=== PATIENT | female | born 1965 | race American Indian/Alaskan Native ===

== ENCOUNTER 2019-10-20 17:02 | Emergency (ER) | payer OTHER ==
--- NOTE | 2019-10-20 17:12 | Emergency Department Report ---
Blank Doc - Documentation Documentation: 54-year-old female that presents with body aches, tachycardia, sore throat, and cough. This initial assessment/diagnostic orders/clinical plan/treatment(s) is/are subject to change based on patient's health status, clinical progression and re- assessment by fellow clinical providers in the ED. Further treatment and workup at subsequent clinical providers discretion. Patient/guardians urged not to elope from the ED as their condition may be serious if not clinically assessed and managed. Initial orders include: 1- Patient sent to [facility] for further evaluation and treatment 2- CXR
--- NOTE | 2019-10-20 18:03 | XRay Report ---
CHEST 2 VIEWS INDICATION / CLINICAL INFORMATION: cough. COMPARISON: None available. FINDINGS: SUPPORT DEVICES: None. HEART / MEDIASTINUM: Enlarged with normal pulmonary vascularity LUNGS / PLEURA: No significant pulmonary or pleural abnormality. No pneumothorax. ADDITIONAL FINDINGS: No significant additional findings. IMPRESSION: 1. Borderline cardiomegaly without CHF Signer Name: Bobby Poe MD Signed: 10/20/2019 5:59 PM Workstation Name: [id number]
--- NOTE | 2019-10-20 19:31 | Emergency Department Report ---
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 She said worsening over the last 3 days with nasal congestion and runny nose. Patient says she thinks is allergies but she works at [employer] and she wants to make sure that it is not more than allergy. Denies any shortness of breath, chest pain, nausea or vomiting. Denies any fever or chills. Patient blood pressure is also elevated and she has a history of hypertension which is managed by her primary care at [facility]. She says she takes amlodipine and HCTZ which she took her last dose was this morning. Denies any headache or dizziness. She does complain of right eye redness and pain on and off. Reports some drainage but no contact with individuals with similar symptoms. Denies any abdominal pain. Pain is 9 out of 10 achy. No medication taken. Intermittent. No numbness or tingling to extremities. Patient is a daily smoker. ED Review of Systems ROS: Stated complaint: RT EYE POSS PINK EYE/SORE THROAT Other details as noted in HPI Constitutional: denies: chills, fever Eyes: eye pain, eye discharge ENT: throat pain, congestion. denies: ear pain, dental pain, epistaxis Respiratory: denies: cough, orthopnea, shortness of breath, SOB with exertion, SOB at rest, stridor, wheezing Cardiovascular: denies: chest pain, palpitations, dyspnea on exertion, edema, syncope Gastrointestinal: denies: abdominal pain, nausea, vomiting, diarrhea, hematemesis, hematochezia Genitourinary: denies: dysuria, frequency, hematuria Musculoskeletal: myalgia. denies: back pain, joint swelling, arthralgia Skin: denies: rash Neurological: denies: headache, numbness, paresthesias, abnormal gait, vertigo ED Past Medical Hx - Past Medical History Previous Medical History?: Yes Hx Hypertension: Yes Hx Diabetes: Yes - Surgical History Past Surgical History?: No - Family History Family history: hypertension - Social History Smoking Status: Never Smoker Substance Use Type: Alcohol - Medications Home Medications: Home Medications Medication Instructions Recorded Confirmed Last Taken Type Acetaminophen [Acetaminophen ER] 650 mg PO Q8H PRN #15 tablet.er 10/20/19 Unknown Rx Azithromycin [Zithromax Z-PASTOR] 250 mg PO DAILY 5 Days #1 pkg 10/20/19 Unknown Rx Cetirizine HCl [ZyrTEC] 10 mg PO QAM 10 Days #10 capsule 10/20/19 Unknown Rx Fluticasone [Flonase] 1 spray NS QDAY 10 Days #1 bottle 10/20/19 Unknown Rx Gentamicin 0.3% Ophth Soln 2 drops OP Q8H 7 Days #1 bottle 10/20/19 Unknown Rx amLODIPine 10 mg PO DAILY 30 Days #30 tab 10/20/19 Unknown Rx hydroCHLOROthiazide [HCTZ] 25 mg PO QDAY 30 Days #30 tablet 10/20/19 Unknown Rx Minor Respiratory Exam - Exam General: Vital signs noted. No distress. Alert and acting appropriately. This is a 54-year-old female well-nourished well-developed in no acute distress. She is nontoxic in appearance. HEENT: Yes Moist Mucous Membranes, Yes Rhinorrhea (Nasal turbinates erythema and congested), Yes Conjuctival Injection (Right conjunctivitis, with right conjunctival injection, erythematous sclera, bilateral pupils equal and reactive to light. Visual acuity 20/30 on the round. Funduscopic exam is normal.), No Pharyngeal Erythema, No Pharyngeal Exudates, No Frontal Tenderness, No Maxillary Tenderness Ear: Neither TM Bulge (Bilateral middle ear effusion), Neither TM Erythema, Neither EAC Pain, Neither EAC Discharge Neck: Yes Supple (Nontender to palpate.), No Adenopathy Lungs: Yes Good Air Exchange, No Wheezes, No Ronchi, No Stridor, No Cough, No Labored Respirations, No Retractions, No Use of Accessory Muscles, No Other Abnormal Lung Sounds Abdomen: Yes Normal Bowel Sounds (In all quadrants), No Tenderness, No Peritoneal Signs Skin: No Rash, No Edema Neurologic: Alert and oriented, no deficits. Patient is alert and oriented x3. GCS of 15. No facial drooping. Speech is normal. Normal reflexes and normal gait. No motor or sensory deficit. Negative Romberg and negative pronator drift Musculoskeletal: Unremarkable. ED Course Vital Signs 10/20/19 17:10 Temperature 98.3 F Pulse Rate 102 H Respiratory 20 Rate Blood Pressure 185/128 O2 Sat by Pulse 98 Oximetry - Reevaluation(s) Reevaluation #1: 10/20/19 20:04 Patient with sore throat and body ache with elevated blood pressure and history of hypertension and she takes Norvasc and hydrochlorothiazide and she says she took dose this morning and she is also out of the pills so she will need a refill. Patient denies any headache. She did report right eye pain in triage but she reports none now it is on and off. She does not have any chest pain or shortness of breath. Chest x-ray negative findings. Will give blood pressure medication in ED and reassess Reevaluation #2: 10/20/19 21:35 Patient blood pressure is better and her pain is better status post Tylenol and hydralazine. She is stable and in no acute distress. ED Medical Decision Making - Radiology Data Radiology results: report reviewed Chest x-ray two-view dictated by radiologist and report reviewed by myself. Please see details below FINDINGS: SUPPORT DEVICES: None. HEART / MEDIASTINUM: Enlarged with normal pulmonary vascularity LUNGS / PLEURA: No significant pulmonary or pleural abnormality. No pneumothorax. ADDITIONAL FINDINGS: No significant additional findings. IMPRESSION: 1. 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 Patient reported that over the last 5 days she has been having sore throat and body aches and right eye redness and pain on and off. Physical findings for right conjunctivitis and her visual acuity 20/30 all around. Neurological exam normal. Patient with findings for sinusitis. Her blood pressure is elevated in emergency room and she is on medication which she said she needs refill for amlodipine and HCTZ. She receive hydralazine 20 mg IM in emergency room and blood pressure taken 1 hour later and improved. She also received Tylenol in emergency room and she is not experiencing any pain at present. Patient given information on chest x-ray which shows no acute findings. Educated on diagnosis and treatment plan and to follow-up with her primary care physician tomorrow and she voiced understanding. Patient to return to work on Thursday and information given onCOVID- 19 for education. Discharged home with family in stable condition with prescription for Zyrtec, Flonase and Zithromax. Refill for hydrochlorothiazide and amlodipine for blood pressure. She is aware that she needs to take her blood pressure daily and record and take to primary care visit with her. - Differential Diagnosis PNA, bronchitis, URI with cough and congestion, allergies Critical care attestation.: If time is entered above; I have spent that time in minutes in the direct care of this critically ill patient, excluding procedure time. ED Disposition Clinical Impression: Elevated blood pressure reading with diagnosis of hypertension Sinusitis Qualifiers: Sinusitis location: unspecified location Chronicity: acute Recurrence: recurrent Qualified Code(s): J01.91 - Acute recurrent sinusitis, unspecified Conjunctivitis Qualifiers: Conjunctivitis type: acute Acute conjunctivitis type: unspecified Laterality: right Qualified Code(s): H10.31 - Unspecified acute conjunctivitis, right eye Disposition: TO HOME OR SELFCARE Is pt being admited?: No Does the pt Need Aspirin: No Condition: Stable Instructions: Sinusitis (ED), Conjunctivitis (ED), Hypertension (ED) Additional Instructions: Please take medication as prescribed Follow-up with your primary care physician at [employer] tomorrow. Please call to schedule an appointment If your condition worsens follow-up with the closest emergency room. Increase your fluid intake See discharge instruction on hypertension, sinusitis and conjunctivitis See information given to you on COVID-19 with 19 virus and this is for your information Prescriptions: Acetaminophen [Acetaminophen ER] 650 mg PO Q8H PRN #15 tablet.er PRN Reason: Body aches amLODIPine 10 mg PO DAILY 30 Days #30 tab Fluticasone [Flonase] 1 spray NS QDAY 10 Days #1 bottle Gentamicin 0.3% Ophth Soln 2 drops OP Q8H 7 Days #1 bottle hydroCHLOROthiazide [HCTZ] 25 mg PO QDAY 30 Days #30 tablet Azithromycin [Zithromax Z-PASTOR] 250 mg PO DAILY 5 Days #1 pkg Cetirizine HCl [ZyrTEC] 10 mg PO QAM 10 Days #10 capsule Referrals: PRIMARY CAREMD [Primary Care Provider] - 10/21/19 Forms: Work/School Release Form(ED)
[2019-10-20] MEDS ORDERED: hydrALAZINE 20 MG/1 ML INJ IM ONE (20:06)
[2019-10-20] MEDS ORDERED: ACETAMINOPHEN 325 MG TAB PO ONE (20:08)
[2019-10-20 21:35] VITALS: BP 160/88
== END 2019-10-20 21:54 | disposition home or self-care (01) ==
LOC: ED 17:02
DX: J01.91 Acute recurrent sinusitis, unspecified (principal); H10.31 Unspecified acute conjunctivitis, right eye; E11.9 Type 2 diabetes mellitus without complications; I10 Essential (primary) hypertension
CPT/HCPCS: 71046; 96372; 99283; J0360

== ENCOUNTER 2021-12-10 08:47 | Emergency (ER) | payer OTHER ==
--- NOTE | 2021-12-10 11:19 | Emergency Department Report ---
ED General Adult HPI - General Chief complaint: Neck Pain/Injury Stated complaint: SORE THROAT/BUMP ON NECK Time Seen by Provider: 12/10/21 10:58 Source: patient Mode of arrival: Ambulatory Limitations: No Limitations - History of Present Illness Initial comments: 56 Y F with PMH HTN/DM report to ER with C/O neck pain with lump and bump to anterior side of neck. Patient was suppose to get steroid shot today but provider cancel shot due to neck findings. Pain started on thursday and patient reports pain with swallowing as well. No SOb or CP noted. Onset/Timin -: days(s) Location: neck Severity scale (0 -10): 7 Associated Symptoms: rash, other (Itching) Treatments Prior to Arrival: none - Related Data Previous Rx's Medication Instructions Recorded Last Taken Type Acetaminophen [Acetaminophen ER] 650 mg PO Q8H PRN #15 tablet.er 10/20/19 Unkn own Rx Azithromycin [Zithromax Z-PASTOR] 250 mg PO DAILY 5 Days #1 pkg 10/20/19 Unknown Rx Cetirizine HCl [ZyrTEC] 10 mg PO QAM 10 Days #10 capsule 10/20/19 Unknown Rx Fluticasone [Flonase] 1 spray NS QDAY 10 Days #1 bottle 10/20/19 Unknown Rx Gentamicin 0.3% Ophth Soln 2 drops OP Q8H 7 Days #1 bottle 10/20/19 Unknown Rx amLODIPine 10 mg PO DAILY 30 Days #30 tab 10/20/19 Unknown Rx hydroCHLOROthiazide [HCTZ] 25 mg PO QDAY 30 Days #30 tablet 10/20/19 Unknown Rx Allergies Allergy/AdvReac Type Severity Reaction Status Date / Time No Known Allergies Allergy Verified 12/10/21 10:05 ED Review of Systems ROS: Stated complaint: SORE THROAT/BUMP ON NECK Other details as noted in HPI Constitutional: denies: chills, fever Eyes: denies: eye pain, eye discharge, vision change ENT: denies: ear pain, throat pain Respiratory: denies: cough, shortness of breath, wheezing Cardiovascular: denies: chest pain, palpitations Endocrine: no symptoms reported Gastrointestinal: denies: abdominal pain, nausea, diarrhea Genitourinary: denies: urgency, dysuria, discharge Musculoskeletal: other (neck pain ). denies: back pain, joint swelling, arthralgia Skin: denies: rash, lesions Neurological: denies: headache, weakness, paresthesias Psychiatric: denies: anxiety, depression Hematological/Lymphatic: denies: easy bleeding, easy bruising ED Past Medical Hx - Past Medical History Hx Hypertension: Yes Hx Diabetes: Yes - Social History Smoking Status: Never Smoker Substance Use Type: Alcohol - Medications Home Medications: Home Medications Medication Instructions Recorded Confirmed Last Taken Type Acetaminophen [Acetaminophen ER] 650 mg PO Q8H PRN #15 tablet.er 10/20/19 Unknown Rx Azithromycin [Zithromax Z-PASTOR] 250 mg PO DAILY 5 Days #1 pkg 10/20/19 Unknown Rx Cetirizine HCl [ZyrTEC] 10 mg PO QAM 10 Days #10 capsule 10/20/19 Unknown Rx Fluticasone [Flonase] 1 spray NS QDAY 10 Days #1 bottle 10/20/19 Unknown Rx Gentamicin 0.3% Ophth Soln 2 drops OP Q8H 7 Days #1 bottle 10/20/19 Unknown Rx amLODIPine 10 mg PO DAILY 30 Days #30 tab 10/20/19 Unknown Rx hydroCHLOROthiazide [HCTZ] 25 mg PO QDAY 30 Days #30 tablet 10/20/19 Unknown Rx ED Physical Exam - General Limitations: No Limitations General appearance: alert, in no apparent distress - Head Head exam: Present: atraumatic, normocephalic - Eye Eye exam: Present: normal appearance - ENT ENT exam: Present: mucous membranes moist - Neck Neck exam: Present: tenderness, other (small bump with redness notedn and also swelling noted to under chin with tenderness noted. ) - Respiratory Respiratory exam: Present: normal lung sounds bilaterally. Absent: respiratory distress - Cardiovascular Cardiovascular Exam: Present: regular rate, normal rhythm. Absent: systolic murmur, diastolic murmur, rubs, gallop - GI/Abdominal GI/Abdominal exam: Present: soft, normal bowel sounds - Extremities Exam Extremities exam: Present: normal inspection - Back Exam Back exam: Present: normal inspection - Neurological Exam Neurological exam: Present: alert, oriented X3 - Psychiatric Psychiatric exam: Present: normal affect, normal mood - Skin Skin exam: Present: warm, dry, intact, normal color. Absent: rash ED Course Vital Signs 12/10/21 10:05 Temperature 98.1 F Pulse Rate 92 H Respiratory 18 Rate Blood Pressure 135/88 O2 Sat by Pulse 96 Oximetry ED Medical Decision Making - Lab Data Result diagrams: 12/10/21 11:36 - Medical Decision Making 56-year-old female past medical history hypertension, diabetes. Anterior neck pain with swelling and small bump like pimple with itching. No airway concerns at this moment. No shortness of breath, no chest pain, no dizziness, no headache. Patient blood glucose was 326 per chemistry this morning recheck done by blood glucose machine revealed a BG of 224. Insulin was withheld as patient states that she did not take her morning diabetic medications. Due to the trend downward of her blood glucose, no need for correction. Patient will take her diabetic medication once home. CT shows no acute process noted. Enlargement of right lobe of thyroid noted, CT suggest this is a chronic condition. Patient informed of CT results. Patient will follow-up with her PCP about findings of CT. Patient agrees with plan of care and verbalizes understanding. Vital Signs 12/10/21 10:05 Temperature 98.1 F Pulse Rate 92 H Respiratory 18 Rate Blood Pressure 135/88 O2 Sat by Pulse 96 Oximetry Lab Results 12/10/21 Range/Units 11:36 Sodium 140 (137-145) mmol/L Potassium 3.4 L (3.6-5.0) mmol/L Chloride 98.8 (98-107) mmol/L Carbon Dioxide 26 (22-30) mmol/L Anion Gap 19 mmol/L BUN 10 (7-17) mg/dL Creatinine 0.7 (0.6-1.2) mg/dL Estimated GFR > 60 ml/min BUN/Creatinine Ratio 14 % Glucose 326 H (65-100) mg/dL Calcium 9.0 (8.4-10.2) mg/dL Critical care attestation.: If time is entered above; I have spent that time in minutes in the direct care of this critically ill patient, excluding procedure time. ED Disposition Clinical Impression: Thyroid enlargement Disposition: 01 HOME / SELF CARE / HOMELESS Is pt being admited?: No Condition: Stable Additional Instructions: Please follow-up with primary care provider about your thyroid enlargement on the right side of your thyroid gland. Time of Disposition: 15:36 Print Language: MALTESE
[2021-12-10 12:25] LABS: Blood Urea Nitrogen 10 mg/dL (7-17); Hemolysis Index 35
[2021-12-10 12:28] LABS: BUN/Creatinine Ratio 14
[2021-12-10] MEDS ORDERED: INSULIN LISPRO 100 UNIT/ML SUB-Q ONE (13:55)
--- NOTE | 2021-12-10 15:21 | Cat Scan Report ---
CT NECK 12/05/2021 HISTORY: neck pain with mass, location not specified 100 ML OMNI 300 . FINDINGS: Contrast enhanced CT images of the soft tissues of the neck were obtained. Images are evalu ated in the axial, coronal, and sagittal plane. There is a normal CT appearance to the parotid and submandibular glands. There is no evidence of abnormality involving the oral cavity or nasopharynx. Diffuse enlargement of the thyroid gland is present, more prominently on the right. The right lobe of thyroid gland measures 6.9 cm in craniocaudal length and has axial measurements of 3.5 x 3.7 cm. The overall appearance is most consistent with multinodular goiter. This is generally considered to be a chronic process. There is no definite evidence of acute superimposed abnormality. There is no evidence of abnormal cervical adenopathy. IMPRESSION: No evidence of acute abnormality. Multinodular goiter with prominent enlargement of the r ight lobe of the thyroid gland. All CT scans at this location are performed using dose reduction to ALARA by means of automated expos ure control. Signer Name: Jesús Harris MD Signed: 12/10/2021 3:17 PM Workstation Name: [id number]
[2021-12-10] MEDS ORDERED: HYDROcodone/ACETAMINOPHEN 5-325 MG TAB PO ONE (15:37)
[2021-12-10 16:14] VITALS: BP 136/87
== END 2021-12-10 16:15 | disposition home or self-care (01) ==
LOC: ED 08:47
DX: E04.9 Nontoxic goiter, unspecified (principal); I10 Essential (primary) hypertension; E11.9 Type 2 diabetes mellitus without complications; F17.200 Nicotine dependence, unspecified, uncomplicated
CPT/HCPCS: 36415; 70491; 80048; 82962; 99284; Q9967